=== PATIENT | female | born 1985 | race African-American/Black ===

== ENCOUNTER → 2017-01-22 | Outpatient (CLI) | payer OTHER, SELFPAY ==
--- NOTE | 2017-01-23 09:16 | US ---
Examination: Greater than 14 weeks transabdominal ultrasound with color Doppler and M-mode evaluatio n. HISTORY: Screening FINDINGS: LMP is 09/05/2016 EVALUATION: Anterior placenta with a breech lie and grade 1. Visually amniotic fluid is within normal limits. Three-vessel cord is seen. Ventricles are within normal limits. Nuchal fold thickness is not provided. Four chamber heart is noted. Heart rate is 161 beats per minute. BIOMETRY AND GESTATIONAL AGE: Biparietal diameter 4.9 cm. The abdominal circumference measures 14.3 cm. The femoral length is 3.2 cm with head circumference of 17.8 cm. Gestational age is 19 weeks and 6 days. The expected date of delivery is approximately 06/09/2017. Fetus weight is 318 grams. Overall the fetus is within the 46t h percentile. Other detail anatomy summarized into PACs sheet after the images. No anatomical anomalies. There is a 5.5 cm heterogeneous subserosal fibroid noted within the region of pain. IMPRESSION: 1. Single active IU with breech fetus. Anterior placenta with grade 1, no placenta previa. 2. No anomalies are seen. Amniotic fluid appears within normal limits. 3. There is a 5.5 cm subserosal fibroid noted along the right side of the uterus within the region o f pain.
== END ==
LOC: MW.CHOBGYN 10:14
PROVIDERS: ATTEND Obstetrics & Gynecology
DX: O26.899 Other specified pregnancy related conditions, unspecified trimester (principal); R10.9 Unspecified abdominal pain; Z36 Encounter for antenatal screening of mother
CPT/HCPCS: 36415; 76805; 76805-26; 81001; 85027; 86592; 86762; 86803; 86850; 86900; 86901; 87086; 87340; 87389

== ENCOUNTER → 2017-03-19 | Outpatient (CLI) | payer OTHER, SELFPAY | LOC: MW.CHOBGYN 08:48 | PROVIDERS: ATTEND Obstetrics & Gynecology | DX: Z34.90 Encounter for supervision of normal pregnancy, unspecified, unspecified trimester (principal) | CPT/HCPCS: 36415; 81003; 82950; 85027 ==

== ENCOUNTER 2017-06-19 05:06 | Inpatient (IN) | payer MEDICAID, OTHER ==
[2017-06-19] MEDS ORDERED: Sodium Chloride 0.9% 2.5 ML Syringe FLUSH PRN ×2 (05:15→14:40)
[2017-06-19] MEDS ORDERED: Nalbuphine 10 MG/1 ML Vial IVPUSH PRN ×2 (05:15→16:58)
[2017-06-19] MEDS ORDERED: Sodium Chloride 0.9% 10 ML Syringe FLUSH PRN ×2 (05:15→14:40)
[2017-06-19] MEDS ORDERED: Methylergonovine 0.2 MG/1 ML Amp IM PRN (05:15)
[2017-06-19] MEDS ORDERED: Carboprost Tromethamine 250 MCG/1 ML Amp IM PRN (05:15)
[2017-06-19] MEDS ORDERED: Butorphanol 1 MG/ML SDV IVPUSH PRN (05:15)
[2017-06-19] MEDS ORDERED: Misoprostol 200 MCG Tab PO PRN (05:15)
[2017-06-19] MEDS ORDERED: Water For Irrigation,Sterile 1,000 ML Container IRR PRN (05:15)
[2017-06-19] MEDS ORDERED: Lidocaine 1% 50 ML MDV INJECT PRN (05:15)
[2017-06-19] MEDS ORDERED: Oxytocin/Lactated Ringers 30 UNIT/500 ML BAG IV SCH ×2 (05:15)
[2017-06-19] MEDS ORDERED: Terbutaline 1 MG/ML SDV SUBCUT PRN (05:15)
[2017-06-19] MEDS ORDERED: Misoprostol 25 MCG (1/4 of 100 MCG) Tab VAG PRN (05:15)
[2017-06-19] MEDS ORDERED: Misoprostol 25 MCG (1/4 of 100 MCG) Tab VAG SCH (05:15)
[2017-06-19] MEDS: Lactated Ringers 1,000 ML IV SCH ×2 (05:47→10:59)
[2017-06-19] MEDS: Misoprostol 25 MCG (1/4 of 100 MCG) Tab PO SCH ×3 (06:07→22:36)
--- NOTE | 2017-06-19 08:31 | PCM.LDHP ---
L&D History of Present Illness - General Date of Service: 06/19/17 Admit Problem/Dx: Patient Status Order with Admit Dx/Problem 06/19/17 05:16 Patient Status [ADT] Routine Admission Diagnosis/Problem Admission Diagnosis/Problem Source of Information: Patient History Limitations: Reports: No Limitations - History of Present Illness Improves with: Reports: None Worsens with: Reports: None Associated Symptoms: Reports: N - Related Data Allergies/Adverse Reactions: Allergies Allergy/AdvReac Type Severity Reaction Status Date / Time No Known Allergies Allergy Verified 08/05/16 08:13 Home Medications: Home Meds . [No Known Home Meds] 09/10/14 [History] Past Medical History - Past Health History Medical/Surgical History: Denies Medical/Surgical History HEENT History: Reports: None Cardiovascular History: Reports: None Respiratory History: Reports: None Gastrointestinal History: Reports: GERD Genitourinary History: Reports: None BONE GLUE MAKER History: Reports: None Musculoskeletal History: Reports: None Neurological History: Reports: None Psychiatric History: Reports: None Endocrine/Metabolic History: Reports: None Hematologic History: Reports: None Immunologic History: Reports: None Oncologic (Cancer) History: Reports: None Dermatologic History: Reports: None - Infectious Disease History Infectious Disease History: Reports: None - Past Surgical History Head Surgeries/Procedures: Reports: None HEENT Surgical History: Reports: None Cardiovascular Surgical History: Reports: None Respiratory Surgical History: Reports: None GI Surgical History: Reports: None Female Surgical History: Reports: None Endocrine Surgical History: Reports: None Neurological Surgical History: Reports: None Musculoskeletal Surgical History: Reports: None Dermatological Surgical History: Reports: None Social & Family History - Family History Family Medical History: Noncontributory - Tobacco Use Smoking Status *Q: Never Smoker Second Hand Smoke Exposure: No - Caffeine Use Caffeine Use: Reports: None - Alcohol Use Days Per Week of Alcohol Use: 0 - Recreational Drug Use Recreational Drug Use: No H&P Review of Systems - Review of Systems: Review Of Systems: See Below General: Reports: No Symptoms HEENT: Reports: No Symptoms Pulmonary: Reports: No Symptoms Cardiovascular: Reports: No Symptoms Gastrointestinal: Reports: No Symptoms Genitourinary: Reports: No Symptoms Musculoskeletal: Reports: No Symptoms Skin: Reports: No Symptoms Psychiatric: Reports: No Symptoms Neurological: Reports: No Symptoms Hematologic/Lymphatic: Reports: No Symptoms Immunologic: Reports: No Symptoms L&D Exam - Exam Exam: See Below - Vital Signs Weight: 54.3 kg - OB Specific Fundal Height In cm: 38 Contraction Intensity: Mild Movement: Active Heart Rate (FHR) Variability: Moderate (6-25 bmp) Presentation: Vertex - Hall Score Hall Score Cervix Position: Midposition Hall Score Consistency: Medium Hall Score Effacement: 51-70% Hall Score Dilation: 1-2 cm Hall Score 's Station: -2 Hall Score Total: 6 - Exam General: Alert, Oriented HEENT: PERRLA, Conjunctiva Clear, EACs Clear, EOMI, Hearing Intact, Mucosa Moist & [place], Nares Patent, Normal Nasal Septum, Posterior Pharynx Clear, TMs Clear Neck: Supple, Trachea Midline Lungs: Clear to Auscultation, Normal Respiratory Effort Cardiovascular: Regular Rate, Regular Rhythm GI/Abdominal Exam: Normal Bowel Sounds, Soft, Non-Tender, No Organomegaly, No Distention, No Abnormal Bruit, No Mass, Pelvis Stable Rectal Exam: Normal Exam, Normal Rectal Tone Genitourinary: Normal external exam, Normal bimanual exam, Normal speculum exam Back Exam: Normal Inspection, Full Range of Motion Extremities: Normal Inspection, Normal Range of Motion, Non-Tender, No Pedal Edema, Normal Capillary Refill Skin: Warm, Dry, Intact Neurological: Cranial Nerves Intact, Reflexes Equal Bilateral Psychiatric: Alert, Normal Affect, Normal Mood - Patient Data Lab Results Last 24 hrs: Laboratory Results - last 24 hr 06/19/17 06/19/17 Range/Units 05:42 05:42 WBC 8.19 (4.0-11.0) K/uL RBC 4.89 (4.30-5.90) M/uL Hgb 11.4 L (12.0-16.0) g/dL Hct 34.7 L (36.0-46.0) % MCV 71.0 L (80.0-98.0) fL MCH 23.3 L (27.0-32.0) pg MCHC 32.9 (31.0-37.0) g/dL RDW Std Deviation 35.9 (28.0-62.0) fl RDW Coeff of Earnestine 14 (11.0-15.0) % Plt Count 168 (150-400) K/uL Nucleated RBC % 0.0 /100WBC Nucleated RBCs # 0 K/uL Blood Type B POSITIVE Antibody Screen NEGATIVE Result Diagrams: 06/19/17 05:42 Problem List Initiated/Reviewed/Updated: Yes Orders Last 24hrs: Active Orders 24 hr Category Date Time Status Patient Status [ADT] Routine ADT 06/19/17 05:16 Active Bedrest Bathroom Privileges [RC] ASDIRECTED Care 06/19/17 05:16 Active Communication Order [RC] ASDIRECTED Care 06/19/17 05:16 Active Communication Order [RC] ASDIRECTED Care 06/19/17 05:16 Active Communication Order [RC] ASDIRECTED Care 06/19/17 05:16 Active Heart Tones [RC] CONTINUOUS Care 06/19/17 05:16 Active Non Stress Test [RC] PER UNIT ROUTINE Care 06/19/17 05:16 Active May Shower [RC] ASDIRECTED Care 06/19/17 05:16 Active Notify Provider [RC] PRN Care 06/19/17 05:16 Active Notify Provider [RC] PRN Care 06/19/17 05:16 Active Notify Provider [RC] PRN Care 06/19/17 05:16 Active Notify Provider [RC] STAT Care 06/19/17 05:16 Active Oxygen Therapy [RC] ASDIRECTED Care 06/19/17 05:16 Active Up ad Trinity [RC] ASDIRECTED Care 06/19/17 05:16 Active Vaginal Exam [RC] PRN Care 06/19/17 05:16 Active Vaginal Exam [RC] PRN Care 06/19/17 05:16 Active Vital Signs [RC] PER UNIT ROUTINE Care 06/19/17 05:16 Active Vital Signs [RC] PER UNIT ROUTINE Care 06/19/17 05:16 Active Clear Liquid Diet [DIET] Diet 06/19/17 Breakfast Active Butorphanol [Stadol] Med 06/19/17 05:15 Active 1 mg IVPUSH Q1H PRN Carboprost Tromethamine [Hemabate DS] Med 06/19/17 05:15 Active 250 mcg IM ASDIRECTED PRN Lactated Ringers [Ringers, Lactated] 1,000 ml Med 06/19/17 05:15 Active IV ASDIRECTED Lidocaine 1% [Xylocaine 1%] Med 06/19/17 05:15 Active 50 ml INJECT .ONCE PRN Methylergonovine [Methergine] Med 06/19/17 05:15 Active 0.2 mg IM ASDIRECTED PRN Misoprostol [Cytotec] Med 06/19/17 05:15 Active 200 mcg PO .ONCE PRN Misoprostol [Cytotec] Med 06/19/17 05:30 Active 25 mcg PO Q4H Misoprostol [Cytotec] Med 06/19/17 05:15 Active 25 mcg VAG .ONCE Misoprostol [Cytotec] Med 06/19/17 05:15 Active 25 mcg VAG Q4H PRN Oxytocin/Lactated Ringers [Pitocin in LR 30 Units/500 Med 06/19/17 05:15 Active ML] 30 unit in 500 ml IV TITRATE Sodium Chloride 0.9% [Saline Flush] Med 06/19/17 05:15 Active 10 ml FLUSH ASDIRECTED PRN Sodium Chloride 0.9% [Saline Flush] Med 06/19/17 05:15 Active 2.5 ml FLUSH ASDIRECTED PRN Terbutaline [Brethine] Med 06/19/17 05:15 Active 0.25 mg SUBCUT ASDIRECTED PRN Water For Irrigation,Sterile [Sterile Water for Med 06/19/17 05:15 Active Irrigation] 1,000 ml IRR ASDIRECTED PRN Scalp Electrode [WOMSER] Per Unit Routine Oth 06/19/17 05:16 Ordered Medication Administration Instruction [OM.PC] Q3H Oth 06/19/17 05:30 Ordered Peripheral IV Insertion Adult [OM.PC] Routine Oth 06/19/17 05:16 Ordered Resuscitation Status Routine Resus Stat 06/19/17 05:15 Ordered Medication Orders Butorphanol Tartrate (Stadol) 1 mg IVPUSH Q1H PRN PRN Reason: Pain Carboprost Tromethamine (Hemabate Ds) 250 mcg IM ASDIRECTED PRN PRN Reason: Post Hemorrhage Lactated Ringer's (Ringers, Lactated) 1,000 mls @ 150 mls/hr IV ASDIRECTED TASH Last Admin: 06/19/17 05:47 Dose: 150 mls/hr Oxytocin/Lactated Ringer's (Pitocin In Lr 30 Units/500 Ml) 30 unit in 500 mls @ 2 mls/hr IV TITRATE TASH; 2 MUNITS/MIN PRN Reason: Protocol Lidocaine HCl (Xylocaine 1%) 50 ml INJECT .ONCE PRN PRN Reason: Laceration repair Methylergonovine Maleate (Methergine) 0.2 mg IM ASDIRECTED PRN PRN Reason: Post Hemorrhage Misoprostol (Cytotec) 25 mcg VAG .ONCE TASH Last Admin: 06/19/17 06:07 Dose: 25 mcg Misoprostol (Cytotec) 25 mcg VAG Q4H PRN PRN Reason: Cervical Ripening Stop: 06/20/17 09:16 Misoprostol (Cytotec) 200 mcg PO .ONCE PRN PRN Reason: Post Hemorrhage Misoprostol (Cytotec) 25 mcg PO Q4H TASH Last Admin: 06/19/17 06:07 Dose: 25 mcg Sodium Chloride (Saline Flush) 10 ml FLUSH ASDIRECTED PRN PRN Reason: Keep Vein Open Sodium Chloride (Saline Flush) 2.5 ml FLUSH ASDIRECTED PRN PRN Reason: Keep Vein Open Sterile Water (Sterile Water For Irrigation) 1,000 ml IRR ASDIRECTED PRN PRN Reason: delivery Terbutaline Sulfate (Brethine) 0.25 mg SUBCUT ASDIRECTED PRN PRN Reason: Tacysystole Assessment/Plan Comment:: Post date 41+1 admitted for elective induction with Cytotic and Pitocin
[2017-06-19] MEDS ORDERED: ceFAZolin 2 GM in Premix Bag 1 BAG IV ONE (14:40)
[2017-06-19] MEDS ORDERED: Citric Acid/Sodium Citrate Solution 30 ML Cup PO SCH (14:45)
[2017-06-19] MEDS ORDERED: Lactated Ringers 1,000 ML IV SCH ×2 (14:45→16:45)
[2017-06-19] MEDS ORDERED: Morphine PF 10 MG/10 ML SDV ONE (14:51)
[2017-06-19] MEDS ORDERED: Oxytocin/Lactated Ringers 30 UNIT/500 ML BAG ONE (14:53)
[2017-06-19] MEDS ORDERED: Octyl 2-Cyanoacrylate 1 Tube ONE (15:01)
[2017-06-19] MEDS ORDERED: ePHEDrine 50 MG/ML SDV ONE (15:57)
--- NOTE | 2017-06-19 16:04 | PCM.PREANE ---
Preanesthetic Assessment - Anesthesia/Transfusion/Family Hx Anesthesia History: No Prior Anesthesia Family History of Anesthesia Reaction: No Intubation History: Unknown - Review of Systems General: No Symptoms Pulmonary: No Symptoms Cardiovascular: No Symptoms Gastrointestinal: No Symptoms Neurological: No Symptoms Other: Reports: None - Physical Assessment Height: 1.55 m Weight: 54.3 kg ASA Class: 2E Mental Status: Alert & Oriented x3 Airway Class: Mallampati = 1 Dentition: Reports: Normal Dentition Thyro-Mental Finger Breadths: 3 Mouth Opening Finger Breadths: 3 ROM/Head Extension: Full Lungs: Clear to Auscultation, Normal Respiratory Effort Cardiovascular: Regular Rate, Regular Rhythm - Lab Values: Laboratory Last Values WBC 8.19 K/uL (4.0-11.0) 06/19/17 05:42 RBC 4.89 M/uL (4.30-5.90) 06/19/17 05:42 Hgb 11.4 g/dL (12.0-16.0) L 06/19/17 05:42 Hct 34.7 % (36.0-46.0) L 06/19/17 05:42 MCV 71.0 fL (80.0-98.0) L 06/19/17 05:42 MCH 23.3 pg (27.0-32.0) L 06/19/17 05:42 MCHC 32.9 g/dL (31.0-37.0) 06/19/17 05:42 RDW Std Deviation 35.9 fl (28.0-62.0) 06/19/17 05:42 RDW Coeff of Earnestine 14 % (11.0-15.0) 06/19/17 05:42 Plt Count 168 K/uL (150-400) 06/19/17 05:42 Nucleated RBC % 0.0 /100WBC 06/19/17 05:42 Nucleated RBCs # 0 K/uL 06/19/17 05:42 Blood Type B POSITIVE 06/19/17 05:42 Antibody Screen NEGATIVE 06/19/17 05:42 - Allergies Allergies/Adverse Reactions: Allergies Allergy/AdvReac Type Severity Reaction Status Date / Time No Known Allergies Allergy Verified 08/05/16 08:13 - Blood Blood Available: No - Anesthesia Plan Pre-Op Medication Ordered: None - Acknowledgements Anesthesia Type Planned: Spinal Pt an Appropriate Candidate for the Planned Anesthesia: Yes Alternatives and Risks of Anesthesia Discussed w Pt/Guardian: Yes Pt/Guardian Understands and Agrees with Anesthesia Plan: Yes PreAnesthesia Questionnaire - Past Health History Medical/Surgical History: Denies Medical/Surgical History HEENT History: Reports: None Cardiovascular History: Reports: None Respiratory History: Reports: None Gastrointestinal History: Reports: GERD Genitourinary History: Reports: None NUT SIFTER History: Reports: (41 weeks, not responding to induction, baby high, not engaged) Musculoskeletal History: Reports: None Neurological History: Reports: None Psychiatric History: Reports: None Endocrine/Metabolic History: Reports: None Hematologic History: Reports: None Immunologic History: Reports: None Oncologic (Cancer) History: Reports: None Dermatologic History: Reports: None - Infectious Disease History Infectious Disease History: Reports: None - Past Surgical History Head Surgeries/Procedures: Reports: None HEENT Surgical History: Reports: None Cardiovascular Surgical History: Reports: None Respiratory Surgical History: Reports: None GI Surgical History: Reports: None Female Surgical History: Reports: None Endocrine Surgical History: Reports: None Neurological Surgical History: Reports: None Musculoskeletal Surgical History: Reports: None Dermatological Surgical History: Reports: None - SUBSTANCE USE Smoking Status *Q: Never Smoker Second Hand Smoke Exposure: No Days Per Week of Alcohol Use: 0 Recreational Drug Use History: No - HOME MEDS Home Medications: Home Meds . [No Known Home Meds] 09/10/14 [History] - CURRENT (IN HOUSE) MEDS Current Meds: Current Medications Butorphanol Tartrate (Stadol) 1 mg IVPUSH Q1H PRN PRN Reason: Pain Carboprost Tromethamine (Hemabate Ds) 250 mcg IM ASDIRECTED PRN PRN Reason: Post Hemorrhage Citric Acid/Sodium Citrate (Bicitra Solution) 30 ml PO .ONCE TASH Last Admin: 06/19/17 15:14 Dose: 30 ml Lactated Ringer's (Ringers, Lactated) 1,000 mls @ 150 mls/hr IV ASDIRECTED TASH Last Admin: 06/19/17 10:59 Dose: 150 mls/hr Oxytocin/Lactated Ringer's (Pitocin In Lr 30 Units/500 Ml) 30 unit in 500 mls @ 2 mls/hr IV TITRATE TASH; 2 MUNITS/MIN PRN Reason: Protocol Last Titration: 06/19/17 14:39 Dose: 0 munits/min, 0 mls/hr Lactated Ringer's (Ringers, Lactated) 1,000 mls @ 500 mls/hr IV .BOLUS TASH Last Admin: 06/19/17 15:14 Dose: 500 mls/hr Lidocaine HCl (Xylocaine 1%) 50 ml INJECT .ONCE PRN PRN Reason: Laceration repair Methylergonovine Maleate (Methergine) 0.2 mg IM ASDIRECTED PRN PRN Reason: Post Hemorrhage Misoprostol (Cytotec) 25 mcg VAG .ONCE TASH Last Admin: 06/19/17 06:07 Dose: 25 mcg Misoprostol (Cytotec) 25 mcg VAG Q4H PRN PRN Reason: Cervical Ripening Stop: 06/20/17 09:16 Misoprostol (Cytotec) 200 mcg PO .ONCE PRN PRN Reason: Post Hemorrhage Misoprostol (Cytotec) 25 mcg PO Q4H TASH Last Admin: 06/19/17 06:07 Dose: 25 mcg Sodium Chloride (Saline Flush) 10 ml FLUSH ASDIRECTED PRN PRN Reason: Keep Vein Open Sodium Chloride (Saline Flush) 2.5 ml FLUSH ASDIRECTED PRN PRN Reason: Keep Vein Open Sodium Chloride (Saline Flush) 10 ml FLUSH ASDIRECTED PRN PRN Reason: Keep Vein Open Sodium Chloride (Saline Flush) 2.5 ml FLUSH ASDIRECTED PRN PRN Reason: Keep Vein Open Sterile Water (Sterile Water For Irrigation) 1,000 ml IRR ASDIRECTED PRN PRN Reason: delivery Terbutaline Sulfate (Brethine) 0.25 mg SUBCUT ASDIRECTED PRN PRN Reason: Tacysystole Discontinued Medications Oxytocin/Lactated Ringer's (Pitocin In Lr 30 Units/500 Ml) 30 unit in 500 mls @ 999 mls/hr IV TITRATE TASH; 999 MUNITS/MIN PRN Reason: Protocol Stop: 06/19/17 05:46 Cefazolin Sodium/Dextrose 2 gm (/ Premix) 50 mls @ 100 mls/hr IV ONETIME ONE Stop: 06/19/17 15:09 Oxytocin/Lactated Ringer's (Pitocin In Lr 30 Units/500 Ml) Confirm Administered Dose 30 unit in 500 mls @ as directed .ROUTE .STK-MED ONE Stop: 06/19/17 14:54 Cefazolin Sodium/Dextrose (Ancef) Confirm Administered Dose 50 mls @ as directed .ROUTE .STK-MED ONE Stop: 06/19/17 14:55 Morphine Sulfate (Duramorph Pf) Confirm Administered Dose 10 mg .ROUTE .STK-MED ONE Stop: 06/19/17 14:52 Nalbuphine HCl (Nubain) 10 mg IVPUSH Q1H PRN PRN Reason: Pain (severe 7-10) Stop: 06/19/17 07:16 Octyl Cyanoacrylate (Dermabond Advance) Confirm Administered Dose 1 applic .ROUTE .STK-MED ONE Stop: 06/19/17 15:02
[2017-06-19] MEDS ORDERED: Bisacodyl 10 MG Supp RECTAL PRN (16:41)
[2017-06-19] MEDS ORDERED: diphenhydrAMINE 50 MG/ML SDV IVPUSH PRN ×2 (16:41→16:58)
[2017-06-19] MEDS ORDERED: Lanolin 100% Cream 7 GM Tube TOP PRN (16:41)
[2017-06-19] MEDS ORDERED: Ondansetron 4 MG/2 ML SDV IV PRN (16:41)
--- NOTE | 2017-06-19 16:44 | PCM.OPNOTE ---
- General Post-Op/Procedure Note Date of Surgery/Procedure: 06/19/17 Operative Procedure(s): Postdate Possible CPD primary C/Section Pre Op Diagnosis: Postdate Possible CPD primary C/Section Post-Op Diagnosis: Same Anesthesia Technique: Spinal Primary Surgeon: Martínez Narayan EBL in mLs: 550 Complications: None Condition: Good
[2017-06-19] MEDS ORDERED: Naloxone 0.4 MG/ML Syringe IVPUSH PRN (16:58)
[2017-06-19] MEDS ORDERED: fentaNYL 100 MCG/2 ML SDV IVPUSH PRN (17:00)
[2017-06-19] MEDS ORDERED: Acetaminophen/oxyCODONE 325-5 MG Tab PO PRN (17:00)
[2017-06-19] MEDS: Ketorolac 30 MG/ML SDV IVPUSH SCH ×2 (17:04→23:05)
[2017-06-19] MEDS ORDERED: Ondansetron 4 MG/2 ML SDV ONE (17:13)
[2017-06-19] MEDS: Docusate Sodium 100 MG Cap PO SCH (23:05)
--- NOTE | 2017-06-19 23:23 | OR ---
SURGEON: Martínez Narayan MD DATE OF PROCEDURE: PREOPERATIVE DIAGNOSES: Postdate , 41 plus 2, possible CBD. OPERATION PERFORMED: Primary low transverse section. TWISTING FRAME FIXER: Dr. Kelley ANESTHESIA: Spinal by Jazmyne Restrepo and Dr. Knott. ESTIMATED BLOOD LOSS: 550 mL. COMPLICATION: None. FINDING: Male fetus. score reported to be 8 and 9. The weight is not available. INDICATION FOR SURGERY: This patient is 41 plus 2. She is followed in our office. She is admitted for elective induction. The patient had a very narrow pelvis. She has a very closed pubic arch and very flat coccygeal bone and the patient is 43 in spite of the fact that she is primigravida, the baby's head was not engaged and it was entirely above the symphysis pubis. An attempt to do induction was done, but it was unsuccessful and diagnoses of CPD is done and primary low transverse section is performed. PROCEDURE IN DETAIL: The patient was brought to the OR, properly identified. After adequate level of spinal anesthesia with a Urias catheter in the bladder, the patient prepped and draped in sterile fashion as usual. Low transverse Pfannenstiel skin incision was done. The Anjel's fascia and rectus fascia was opened in direction of the incision. The 2 recti muscles were and peritoneal cavity was entered. Bladder flap was raised in the usual manner, pushing the bladder away from the lower uterine segment. Low transverse uterine incision was done and meconium was noticed and amniotic fluid. The fetus was delivered in the vertex position, delivered and cried immediately, handed to the nurse resuscitator, who was present at the time of the delivery and later on the score reported to be 8 and 9 and the weight is not available. The placenta delivered spontaneous, complete, and intact, and then repair of the lower uterine segment was done with 2-0 Vicryl continuous interlocking in 2 layers. Reperitonealization was done with 3-0 Vicryl continuous and then the peritoneal cavity evacuated completely from all blood and blood clot, and closed with 3-0 Vicryl continuous and the rectus fascia was closed with #1 PDS continuous and the Anjel's fascia with 3-0 Vicryl continuous. The skin was closed skin clips Insorb and Dermabond. Instrument and sponge count was correct. The patient tolerated the procedure well and went to recovery room in stable general condition. TAYLOR FIGUEROA /[id number]
[2017-06-20] MEDS: Misoprostol 25 MCG (1/4 of 100 MCG) Tab PO SCH (04:09)
[2017-06-20] MEDS: Ketorolac 30 MG/ML SDV IVPUSH SCH ×3 (05:15→17:22)
--- NOTE | 2017-06-20 08:56 | PCM.PNPP ---
- General Info Date of Service: 06/20/17 Functional Status: Reports: Pain Controlled - Review of Systems General: Reports: No Symptoms HEENT: Reports: No Symptoms Pulmonary: Reports: No Symptoms Cardiovascular: Reports: No Symptoms Gastrointestinal: Reports: No Symptoms Genitourinary: Reports: No Symptoms Musculoskeletal: Reports: No Symptoms Skin: Reports: No Symptoms Neurological: Reports: No Symptoms Psychiatric: Reports: No Symptoms - General Info Date of Service: 06/20/17 - Patient Data Vital Signs - Most Recent: Last Vital Signs Temp 36.8 C 06/20/17 04:00 Pulse 78 06/20/17 04:00 Resp 16 06/20/17 07:00 BP 109/61 06/20/17 04:00 Pulse Ox 93 L 06/20/17 07:00 Weight - Most Recent: 54.3 kg I&O - Last 24 Hours: Intake & Output 06/19/17 06/20/17 06/20/17 22:59 06:59 14:59 Intake Total 1800 Output Total 600 Balance 1200 Lab Results - Last 24 Hours: Laboratory Results - last 24 hr 06/20/17 Range/Units 04:44 Hgb 9.0 L (12.0-16.0) g/dL Hct 27.8 L (36.0-46.0) % Med Orders - Current: Current Medications Bisacodyl (Dulcolax) 10 mg RECTAL .ONCE PRN PRN Reason: Constipation Citric Acid/Sodium Citrate (Bicitra Solution) 30 ml PO .ONCE TASH Last Admin: 06/19/17 15:14 Dose: 30 ml Diphenhydramine HCl (Benadryl) 25 mg IVPUSH Q6H PRN PRN Reason: Itching or Nausea Last Admin: 06/19/17 18:22 Dose: 25 mg Diphenhydramine HCl (Benadryl) 12.5 - 25 mg IVPUSH Q4H PRN PRN Reason: Itching Stop: 06/20/17 16:59 Docusate Sodium (Colace) 100 mg PO BID TASH Last Admin: 06/19/17 23:05 Dose: 100 mg Emollient Ointment (Lansinoh Hpa) 0 gm TOP ASDIRECTED PRN PRN Reason: Sore Nipples Fentanyl (Sublimaze) 25 - 50 mcg IVPUSH Q30M PRN PRN Reason: Pain Lactated Ringer's (Ringers, Lactated) 1,000 mls @ 500 mls/hr IV .BOLUS [facility] Last Admin: 06/19/17 15:14 Dose: 500 mls/hr Lactated Ringer's (Ringers, Lactated) 1,000 mls @ 125 mls/hr IV ASDIRECTED [facility] Last Admin: 06/20/17 03:30 Dose: 125 mls/hr Ibuprofen (Motrin) 800 mg PO Q8H PRN PRN Reason: mild pain or fever Ketorolac Tromethamine (Toradol) 30 mg IVPUSH Q6H [facility] Stop: 06/20/17 16:46 Last Admin: 06/20/17 05:15 Dose: 30 mg Nalbuphine HCl (Nubain) 5 mg IVPUSH Q3H PRN PRN Reason: Pruritis Stop: 06/20/17 16:59 Naloxone HCl (Narcan) 0.1 mg IVPUSH ONETIME PRN PRN Reason: Other Stop: 06/20/17 17:00 Ondansetron HCl (Zofran) 4 mg IV Q4H PRN PRN Reason: Nausea/Vomiting Oxycodone/Acetaminophen (Percocet 325-5 Mg) 1 tab PO Q4H PRN PRN Reason: Pain (moderate 4-6) Oxycodone/Acetaminophen (Percocet 325-5 Mg) 2 tab PO Q4H PRN PRN Reason: Pain (moderate 4-6) Oxycodone/Acetaminophen (Percocet 325-5 Mg) 1 - 2 tab PO Q6H PRN PRN Reason: Pain Stop: 06/21/17 14:00 Sodium Chloride (Saline Flush) 10 ml FLUSH ASDIRECTED PRN PRN Reason: Keep Vein Open Sodium Chloride (Saline Flush) 10 ml FLUSH ASDIRECTED PRN PRN Reason: Keep Vein Open Sodium Chloride (Saline Flush) 2.5 ml FLUSH ASDIRECTED PRN PRN Reason: Keep Vein Open Discontinued Medications Butorphanol Tartrate (Stadol) 1 mg IVPUSH Q1H PRN PRN Reason: Pain Carboprost Tromethamine (Hemabate Ds) 250 mcg IM ASDIRECTED PRN PRN Reason: Post Hemorrhage Ephedrine Sulfate (Ephedrine Sulfate) Confirm Administered Dose 50 mg .ROUTE .STK-MED ONE Stop: 06/19/17 15:58 Lactated Ringer's (Ringers, Lactated) 1,000 mls @ 150 mls/hr IV ASDIRECTED TASH Last Admin: 06/19/17 10:59 Dose: 150 mls/hr Oxytocin/Lactated Ringer's (Pitocin In Lr 30 Units/500 Ml) 30 unit in 500 mls @ 2 mls/hr IV TITRATE TASH; 2 MUNITS/MIN PRN Reason: Protocol Last Titration: 06/19/17 14:39 Dose: 0 munits/min, 0 mls/hr Oxytocin/Lactated Ringer's (Pitocin In Lr 30 Units/500 Ml) 30 unit in 500 mls @ 999 mls/hr IV TITRATE TASH; 999 MUNITS/MIN PRN Reason: Protocol Stop: 06/19/17 05:46 Last Admin: 06/19/17 22:18 Dose: Not Given Cefazolin Sodium/Dextrose 2 gm (/ Premix) 50 mls @ 100 mls/hr IV ONETIME ONE Stop: 06/19/17 15:09 Last Admin: 06/19/17 22:19 Dose: Not Given Oxytocin/Lactated Ringer's (Pitocin In Lr 30 Units/500 Ml) Confirm Administered Dose 30 unit in 500 mls @ as directed .ROUTE .[facility]-MED ONE Stop: 06/19/17 14:54 Cefazolin Sodium/Dextrose (Ancef) Confirm Administered Dose 50 mls @ as directed .ROUTE .[facility]-MED ONE Stop: 06/19/17 14:55 Lidocaine HCl (Xylocaine 1%) 50 ml INJECT .ONCE PRN PRN Reason: Laceration repair Methylergonovine Maleate (Methergine) 0.2 mg IM ASDIRECTED PRN PRN Reason: Post Hemorrhage Misoprostol (Cytotec) 25 mcg VAG .ONCE TASH Last Admin: 06/19/17 06:07 Dose: 25 mcg Misoprostol (Cytotec) 25 mcg VAG Q4H PRN PRN Reason: Cervical Ripening Stop: 06/20/17 09:16 Misoprostol (Cytotec) 200 mcg PO .ONCE PRN PRN Reason: Post Hemorrhage Misoprostol (Cytotec) 25 mcg PO Q4H TASH Last Admin: 06/20/17 04:09 Dose: Not Given Morphine Sulfate (Duramorph Pf) Confirm Administered Dose 10 mg .ROUTE .STK-MED ONE Stop: 06/19/17 14:52 Nalbuphine HCl (Nubain) 10 mg IVPUSH Q1H PRN PRN Reason: Pain (severe 7-10) Stop: 06/19/17 07:16 Octyl Cyanoacrylate (Dermabond Advance) Confirm Administered Dose 1 applic .ROUTE .STK-MED ONE Stop: 06/19/17 15:02 Ondansetron HCl (Zofran) Confirm Administered Dose 4 mg .ROUTE .STK-MED ONE Stop: 06/19/17 17:14 Sodium Chloride (Saline Flush) 2.5 ml FLUSH ASDIRECTED PRN PRN Reason: Keep Vein Open Sterile Water (Sterile Water For Irrigation) 1,000 ml IRR ASDIRECTED PRN PRN Reason: delivery Terbutaline Sulfate (Brethine) 0.25 mg SUBCUT ASDIRECTED PRN PRN Reason: Tacysystole - Interaction Disposition, : in Room with Family Infant Interaction: Holding Feeding: Attempted ; Nursed Fair/Poor Support Person: - Recovery Exam Fundal Tone: Firm Fundal Level: At Umbilicus Fundal Placement: Midline Lochia Amount: Scant Lochia Color: Rubra/Red Perineum Description: Intact, Minimal Bruising/Swelling Episiotomy/Laceration: None Bladder Status: Indwelling Catheter in Place Urinary Elimination: Indwelling Catheter - Exam General: Alert, Oriented HEENT: Pupils Equal Neck: Supple Lungs: Clear to Auscultation, Normal Respiratory Effort Cardiovascular: Regular Rate, Regular Rhythm GI/Abdominal Exam: Normal Bowel Sounds, Soft, Non-Tender, No Organomegaly, No Distention, No Abnormal Bruit, No Mass, Pelvis Stable Extremities: Normal Inspection, Normal Range of Motion, Non-Tender, No Pedal Edema, Normal Capillary Refill Skin: Warm, Dry, Intact Wound/Incisions: Healing Well Neurological: No New Focal Deficit Psy/Mental Status: Alert, Normal Affect, Normal Mood - Problem List Review Problem List Initiated/Reviewed/Updated: Yes - My Orders Last 24 Hours: My Active Orders 06/19/17 14:40 Up ad Trinity [RC] ASDIRECTED Sodium Chloride 0.9% [Saline Flush] 10 ml FLUSH ASDIRECTED PRN Sodium Chloride 0.9% [Saline Flush] 2.5 ml FLUSH ASDIRECTED PRN Peripheral IV Insertion Adult [OM.PC] Routine Schedule Procedure [COMM] Per Unit Routine Resuscitation Status Routine 06/19/17 14:42 Notify Provider Vital Signs [RC] PRN 06/19/17 14:45 Citric Acid/Sodium Citrate [Bicitra Solution] 30 ml PO .ONCE Lactated Ringers [Ringers, Lactated] 1,000 ml IV .BOLUS 06/19/17 16:41 Patient Status [ADT] Routine Ambulate [RC] PER UNIT ROUTINE Antiembolic Devices [RC] PER UNIT ROUTINE Communication Order [RC] PER UNIT ROUTINE Communication Order [RC] PER UNIT ROUTINE Communication Order [RC] Per Unit Routine May Shower [RC] ASDIRECTED RT Incentive Spirometry [RC] Q2HWA Acetaminophen/oxyCODONE [Percocet 325-5 MG] 1 tab PO Q4H PRN Acetaminophen/oxyCODONE [Percocet 325-5 MG] 2 tab PO Q4H PRN Bisacodyl [Dulcolax] 10 mg RECTAL .ONCE PRN Ibuprofen [Motrin] 800 mg PO Q8H PRN Lanolin [Lansinoh HPA] See Dose Instructions TOP ASDIRECTED PRN Ondansetron [Zofran] 4 mg IV Q4H PRN diphenhydrAMINE [Benadryl] 25 mg IVPUSH Q6H PRN Assess Lochia [WOMSER] Per Unit Routine Assess Uterine Involution [WOMSER] Per Unit Routine Breast Pump [WOMSER] Per Unit Routine Peripheral IV Discontinue [OM.PC] Routine Sequential Compression Device [OM.PC] Per Unit Routine 06/19/17 16:45 Ketorolac [Toradol] 30 mg IVPUSH Q6H Lactated Ringers [Ringers, Lactated] 1,000 ml IV ASDIRECTED 06/19/17 21:00 Docusate Sodium [Colace] 100 mg PO BID - Assessment Assessment:: Status post primary low transverse section postoperative day #1 she is doing well - Plan Plan:: Post date 41+1 admitted for elective induction with Cytotic and Pitocin
[2017-06-20] MEDS: Docusate Sodium 100 MG Cap PO SCH (09:33)
[2017-06-20] MEDS: Acetaminophen/oxyCODONE 325-5 MG Tab PO PRN ×3 (09:45→23:38)
[2017-06-20] MEDS: Ibuprofen 800 MG Tab PO PRN (23:37)
[2017-06-21] MEDS: Acetaminophen/oxyCODONE 325-5 MG Tab PO PRN ×4 (04:24→17:34)
[2017-06-21] MEDS: Docusate Sodium 100 MG Cap PO SCH (08:35)
--- NOTE | 2017-06-21 09:11 | PCM.SURGPN ---
- General Info Date of Service: 06/21/17 Functional Status: Reports: Pain Controlled - Review of Systems General: Reports: No Symptoms HEENT: Reports: No Symptoms Pulmonary: Reports: No Symptoms Cardiovascular: Reports: No Symptoms Gastrointestinal: Reports: No Symptoms Genitourinary: Reports: No Symptoms Musculoskeletal: Reports: No Symptoms Skin: Reports: No Symptoms Neurological: Reports: No Symptoms Psychiatric: Reports: No Symptoms - Patient Data Vitals - Most Recent: Last Vital Signs Temp 36.8 C 06/21/17 08:00 Pulse 91 06/21/17 08:00 Resp 15 06/21/17 08:00 BP 103/66 06/21/17 08:00 Pulse Ox 98 06/21/17 08:00 Weight - Most Recent: 54.3 kg I&O - Last 24 Hours: Intake & Output 06/20/17 06/21/17 06/21/17 22:59 06:59 14:59 Output Total 550 Balance -550 Med Orders - Current: Current Medications Bisacodyl (Dulcolax) 10 mg RECTAL .ONCE PRN PRN Reason: Constipation Citric Acid/Sodium Citrate (Bicitra Solution) 30 ml PO .ONCE [facility] Last Admin: 06/19/17 15:14 Dose: 30 ml Diphenhydramine HCl (Benadryl) 25 mg IVPUSH Q6H PRN PRN Reason: Itching or Nausea Last Admin: 06/19/17 18:22 Dose: 25 mg Docusate Sodium (Colace) 100 mg PO BID [facility] Last Admin: 06/21/17 08:35 Dose: 100 mg Emollient Ointment (Lansinoh Hpa) 0 gm TOP ASDIRECTED PRN PRN Reason: Sore Nipples Fentanyl (Sublimaze) 25 - 50 mcg IVPUSH Q30M PRN PRN Reason: Pain Lactated Ringer's (Ringers, Lactated) 1,000 mls @ 500 mls/hr IV .BOLUS [facility] Last Admin: 06/19/17 15:14 Dose: 500 mls/hr Lactated Ringer's (Ringers, Lactated) 1,000 mls @ 125 mls/hr IV ASDIRECTED [facility] Last Admin: 06/20/17 03:30 Dose: 125 mls/hr Ibuprofen (Motrin) 800 mg PO Q8H PRN PRN Reason: mild pain or fever Last Admin: 06/20/17 23:37 Dose: 800 mg Ondansetron HCl (Zofran) 4 mg IV Q4H PRN PRN Reason: Nausea/Vomiting Oxycodone/Acetaminophen (Percocet 325-5 Mg) 1 tab PO Q4H PRN PRN Reason: Pain (moderate 4-6) Last Admin: 06/20/17 17:25 Dose: 1 tab Oxycodone/Acetaminophen (Percocet 325-5 Mg) 2 tab PO Q4H PRN PRN Reason: Pain (moderate 4-6) Last Admin: 06/21/17 08:35 Dose: 2 tab Oxycodone/Acetaminophen (Percocet 325-5 Mg) 1 - 2 tab PO Q6H PRN PRN Reason: Pain Stop: 06/21/17 14:00 Last Admin: 06/20/17 13:23 Dose: 1 tab Sodium Chloride (Saline Flush) 10 ml FLUSH ASDIRECTED PRN PRN Reason: Keep Vein Open Sodium Chloride (Saline Flush) 10 ml FLUSH ASDIRECTED PRN PRN Reason: Keep Vein Open Sodium Chloride (Saline Flush) 2.5 ml FLUSH ASDIRECTED PRN PRN Reason: Keep Vein Open Discontinued Medications Butorphanol Tartrate (Stadol) 1 mg IVPUSH Q1H PRN PRN Reason: Pain Carboprost Tromethamine (Hemabate Ds) 250 mcg IM ASDIRECTED PRN PRN Reason: Post Hemorrhage Diphenhydramine HCl (Benadryl) 12.5 - 25 mg IVPUSH Q4H PRN PRN Reason: Itching Stop: 06/20/17 16:59 Ephedrine Sulfate (Ephedrine Sulfate) Confirm Administered Dose 50 mg .ROUTE .STK-MED ONE Stop: 06/19/17 15:58 Lactated Ringer's (Ringers, Lactated) 1,000 mls @ 150 mls/hr IV ASDIRECTED TASH Last Admin: 06/19/17 10:59 Dose: 150 mls/hr Oxytocin/Lactated Ringer's (Pitocin In Lr 30 Units/500 Ml) 30 unit in 500 mls @ 2 mls/hr IV TITRATE TASH; 2 MUNITS/MIN PRN Reason: Protocol Last Titration: 06/19/17 14:39 Dose: 0 munits/min, 0 mls/hr Oxytocin/Lactated Ringer's (Pitocin In Lr 30 Units/500 Ml) 30 unit in 500 mls @ 999 mls/hr IV TITRATE TASH; 999 MUNITS/MIN PRN Reason: Protocol Stop: 06/19/17 05:46 Last Admin: 06/19/17 22:18 Dose: Not Given Cefazolin Sodium/Dextrose 2 gm (/ Premix) 50 mls @ 100 mls/hr IV ONETIME ONE Stop: 06/19/17 15:09 Last Admin: 06/19/17 22:19 Dose: Not Given Oxytocin/Lactated Ringer's (Pitocin In Lr 30 Units/500 Ml) Confirm Administered Dose 30 unit in 500 mls @ as directed .ROUTE .STK-MED ONE Stop: 06/19/17 14:54 Cefazolin Sodium/Dextrose (Ancef) Confirm Administered Dose 50 mls @ as directed .ROUTE .STK-MED ONE Stop: 06/19/17 14:55 Ketorolac Tromethamine (Toradol) 30 mg IVPUSH Q6H [facility] Stop: 06/20/17 16:46 Last Admin: 06/20/17 17:22 Dose: 30 mg Lidocaine HCl (Xylocaine 1%) 50 ml INJECT .ONCE PRN PRN Reason: Laceration repair Methylergonovine Maleate (Methergine) 0.2 mg IM ASDIRECTED PRN PRN Reason: Post Hemorrhage Misoprostol (Cytotec) 25 mcg VAG .ONCE TASH Last Admin: 06/19/17 06:07 Dose: 25 mcg Misoprostol (Cytotec) 25 mcg VAG Q4H PRN PRN Reason: Cervical Ripening Stop: 06/20/17 09:16 Misoprostol (Cytotec) 200 mcg PO .ONCE PRN PRN Reason: Post Hemorrhage Misoprostol (Cytotec) 25 mcg PO Q4H TASH Last Admin: 06/20/17 04:09 Dose: Not Given Morphine Sulfate (Duramorph Pf) Confirm Administered Dose 10 mg .ROUTE .STK-MED ONE Stop: 06/19/17 14:52 Nalbuphine HCl (Nubain) 10 mg IVPUSH Q1H PRN PRN Reason: Pain (severe 7-10) Stop: 06/19/17 07:16 Nalbuphine HCl (Nubain) 5 mg IVPUSH Q3H PRN PRN Reason: Pruritis Stop: 06/20/17 16:59 Naloxone HCl (Narcan) 0.1 mg IVPUSH ONETIME PRN PRN Reason: Other Stop: 06/20/17 17:00 Octyl Cyanoacrylate (Dermabond Advance) Confirm Administered Dose 1 applic .ROUTE .STK-MED ONE Stop: 06/19/17 15:02 Ondansetron HCl (Zofran) Confirm Administered Dose 4 mg .ROUTE .STK-MED ONE Stop: 06/19/17 17:14 Sodium Chloride (Saline Flush) 2.5 ml FLUSH ASDIRECTED PRN PRN Reason: Keep Vein Open Sterile Water (Sterile Water For Irrigation) 1,000 ml IRR ASDIRECTED PRN PRN Reason: delivery Terbutaline Sulfate (Brethine) 0.25 mg SUBCUT ASDIRECTED PRN PRN Reason: Tacysystole - Exam Wound/Incisions: Healing Well General: Alert, Oriented HEENT: Pupils Equal Neck: Supple Lungs: Clear to Auscultation, Normal Respiratory Effort Cardiovascular: Regular Rate, Regular Rhythm GI/Abdominal Exam: Normal Bowel Sounds, Soft, Non-Tender, No Organomegaly, No Distention, No Abnormal Bruit, No Mass, Pelvis Stable Extremities: Normal Inspection, Normal Range of Motion, Non-Tender, No Pedal Edema, Normal Capillary Refill Skin: Warm, Dry, Intact Neurological: No New Focal Deficit Psy/Mental Status: Alert, Normal Affect, Normal Mood - Problem List Review Problem List Initiated/Reviewed/Updated: Yes - My Orders Last 24 Hours: Active Orders 24 hr Category Date Time Status Regular Diet [DIET] Diet 06/21/17 Breakfast Active AN Neuroaxis Duramorph Precaution Reflex [OM.PC] PER Oth 06/20/17 17:00 Ordered UNIT ROUTINE Medication Orders Bisacodyl (Dulcolax) 10 mg RECTAL .ONCE PRN PRN Reason: Constipation Citric Acid/Sodium Citrate (Bicitra Solution) 30 ml PO .ONCE TASH Last Admin: 06/19/17 15:14 Dose: 30 ml Diphenhydramine HCl (Benadryl) 25 mg IVPUSH Q6H PRN PRN Reason: Itching or Nausea Last Admin: 06/19/17 18:22 Dose: 25 mg Docusate Sodium (Colace) 100 mg PO BID [facility] Last Admin: 06/21/17 08:35 Dose: 100 mg Admin: 06/20/17 09:33 Dose: 100 mg Admin: 06/19/17 23:05 Dose: 100 mg Emollient Ointment (Lansinoh Hpa) 0 gm TOP ASDIRECTED PRN PRN Reason: Sore Nipples Fentanyl (Sublimaze) 25 - 50 mcg IVPUSH Q30M PRN PRN Reason: Pain Lactated Ringer's (Ringers, Lactated) 1,000 mls @ 500 mls/hr IV .BOLUS [facility] Last Admin: 06/19/17 15:14 Dose: 500 mls/hr Lactated Ringer's (Ringers, Lactated) 1,000 mls @ 125 mls/hr IV ASDIRECTED [facility] Last Admin: 06/20/17 03:30 Dose: 125 mls/hr Ibuprofen (Motrin) 800 mg PO Q8H PRN PRN Reason: mild pain or fever Last Admin: 06/20/17 23:37 Dose: 800 mg Ondansetron HCl (Zofran) 4 mg IV Q4H PRN PRN Reason: Nausea/Vomiting Oxycodone/Acetaminophen (Percocet 325-5 Mg) 1 tab PO Q4H PRN PRN Reason: Pain (moderate 4-6) Last Admin: 06/20/17 17:25 Dose: 1 tab Admin: 06/20/17 09:45 Dose: 1 tab Oxycodone/Acetaminophen (Percocet 325-5 Mg) 2 tab PO Q4H PRN PRN Reason: Pain (moderate 4-6) Last Admin: 06/21/17 08:35 Dose: 2 tab Admin: 06/21/17 04:24 Dose: 2 tab Admin: 06/20/17 23:38 Dose: 2 tab Oxycodone/Acetaminophen (Percocet 325-5 Mg) 1 - 2 tab PO Q6H PRN PRN Reason: Pain Stop: 06/21/17 14:00 Last Admin: 06/20/17 13:23 Dose: 1 tab Sodium Chloride (Saline Flush) 10 ml FLUSH ASDIRECTED PRN PRN Reason: Keep Vein Open Sodium Chloride (Saline Flush) 10 ml FLUSH ASDIRECTED PRN PRN Reason: Keep Vein Open Sodium Chloride (Saline Flush) 2.5 ml FLUSH ASDIRECTED PRN PRN Reason: Keep Vein Open - Assessment Assessment (Free Text/Narrative):: S/P c/section doing well - Plan Plan (Free Text/Narrative):: Send home today
[2017-06-21 16:15] VITALS: BP 112/69
[2017-06-21] MEDS: Ibuprofen 800 MG Tab PO PRN (17:35)
== END 2017-06-21 20:05 | disposition home or self-care (01) | DRG 766 ==
LOC: MW.OBCHECK 05:06 → MW.OB 05:08 → MW.OBCHECK 05:16 → MW.OB 05:16 → OBSVTOIN 16:16 → MW.OB 22:03
PROVIDERS: ADMIT Obstetrics & Gynecology; ATTEND Obstetrics & Gynecology
PROC: 10D00Z1 Extraction of Products of Conception, Low, Open Approach (ICD-10-PCS; principal; 2017-06-19)
DX: O48.0 Post-term pregnancy (principal); O65.8 Obstructed labor due to other maternal pelvic abnormalities; Z3A.41 41 weeks gestation of pregnancy; Z37.0 Single live birth
CPT/HCPCS: 01961; 36415; 59025; 85014; 85018; 85027; 86850; 86900; 86901; A9270-GY; J0690; J1200; J1885; J2270; J2405; J7120

== ENCOUNTER 2020-09-28 15:14 | Emergency (ER) | payer BC ==
[2020-09-28] MEDS ORDERED: Acetaminophen 500 MG Tab PO ONE (16:32)
--- NOTE | 2020-09-28 17:00 | EDM.PDOC ---
ED HPI GENERAL MEDICAL PROBLEM - General Chief Complaint: General Stated Complaint: CHILLS/BODY ACHE Time Seen by Provider: 09/28/20 15:42 Source of Information: Reports: Patient History Limitations: Reports: No Limitations - History of Present Illness INITIAL COMMENTS - FREE TEXT/NARRATIVE: 35-year-old female G2, P1 approximately 25 weeks presents for body aches, headache, chest tightness, shortness of breath over the last 3 days. She has noted subjective fevers. She has been taking Tylenol every 4 hours and notes that she feels much better when she is on the Tylenol but starts to feel poorly again as the Tylenol wears off. She denies any abdominal pain, vaginal bleeding. She has had an ultrasound of this confirming an IUP. body ache Pain Score (Numeric/FACES): 8 - Related Data Allergies Allergy/AdvReac Type Severity Reaction Status Date / Time No Known Allergies Allergy Verified 09/28/20 16:25 Home Meds: Home Meds Pnv No.95/Ferrous Fum/Folic AC [ Caplet] 1 tab PO DAILY 09/28/20 [History] Past Medical History - Past Health History Medical/Surgical History: Denies Medical/Surgical History HEENT History: Reports: None Cardiovascular History: Reports: None Respiratory History: Reports: None Gastrointestinal History: Reports: GERD Genitourinary History: Reports: None PHOTOGRAPH ENLARGER History: Reports: Other PHOTOGRAPH ENLARGER History: Musculoskeletal History: Reports: None Neurological History: Reports: None Psychiatric History: Reports: None Endocrine/Metabolic History: Reports: None Hematologic History: Reports: None Immunologic History: Reports: None Oncologic (Cancer) History: Reports: None Dermatologic History: Reports: None - Infectious Disease History Infectious Disease History: Reports: None - Past Surgical History Head Surgeries/Procedures: Reports: None HEENT Surgical History: Reports: None Cardiovascular Surgical History: Reports: None Respiratory Surgical History: Reports: None GI Surgical History: Reports: None Female Surgical History: Reports: None Endocrine Surgical History: Reports: None Neurological Surgical History: Reports: None Musculoskeletal Surgical History: Reports: None Dermatological Surgical History: Reports: None Social & Family History - Family History Family Medical History: No Pertinent Family History - Caffeine Use Caffeine Use: Reports: None - Recreational Drug Use Recreational Drug Use: No ED ROS GENERAL - Review of Systems Review Of Systems: Comprehensive ROS is negative, except as noted in HPI. ED EXAM, GENERAL - Physical Exam Exam: See Below Exam Limited By: No Limitations General Appearance: Alert, WD/WN, No Apparent Distress Throat/Mouth: Normal Voice, No Airway Compromise Head: Atraumatic, Normocephalic Respiratory/Chest: No Respiratory Distress, No Accessory Muscle Use Cardiovascular: Normal Peripheral Pulses GI/Abdominal: Soft, Non-Tender Extremities: Normal Inspection Neurological: Alert, Normal Gait Psychiatric: Normal Affect, Normal Mood Skin Exam: Warm, Dry, Intact, Normal Color Course - Vital Signs Last Recorded V/S: Last Vital Signs Temp 97.0 F 09/28/20 16:26 Pulse 119 H 09/28/20 16:26 Resp 18 09/28/20 16:26 BP 109/65 09/28/20 16:26 Pulse Ox 99 09/28/20 16:26 - Orders/Labs/Meds Orders: Active Orders 24 hr Category Date Time Status Assess Heart Rate [ Heart Rate] [RC] Click Care 09/28/20 16:57 Active to Edit CORONAVIRUS COVID-19 PCR PHL Stat Lab 09/28/20 16:38 Received Labs: Laboratory Tests 09/28/20 Range/Units 16:38 SARS CoV-2 RNA Rapid KHALIDA NEGATIVE (NEGATIVE) Meds: Medications Discontinued Medications Generic Name Dose Route Start Last Admin Trade Name Marce PRN Reason Stop Dose Admin Acetaminophen 1,000 mg 09/28/20 16:32 09/28/20 16:39 Tylenol Extra Strength PO 09/28/20 16:33 1,000 mg ONETIME ONE Administration - Re-Assessments/Exams Free Text/Narrative Re-Assessment/Exam: 09/28/20 17:00 Patient well-appearing with normal oxygen saturations, mild tachycardia in setting of . Low suspicion for serious pathology such as pulmonary embolism or ACS. Patient symptoms are much more likely due to a viral illness, will check for Covid considering pandemic. Will follow up results and disposition accordingly. Tylenol ordered. heart rates to be assessed by nursing. 09/28/20 17:25 Patient's COVID testing is negative. Will f/u [facility] and recommended f/u with OBGYN for further workup. Departure - Departure Time of Disposition: 17:28 Disposition: Home, Self-Care 01 Condition: Good Clinical Impression: Headache Qualifiers: Headache type: unspecified Headache chronicity pattern: acute headache Intractability: not intractable Qualified Code(s): R51.9 - Headache, unspecified - Discharge Information Referrals: PCP,None [Primary Care Provider] - Forms: ED Department Discharge Additional Instructions: Your COVID-19 testing is negative. Our tests are not always 100% accurate if your state test comes back positive, we will call you to inform you. You should still follow-up with your PHOTOGRAPH ENLARGER to discuss why you have been feeling bad lately, but I have a low suspicion of serious pathology. The following information is given to patients seen in the emergency department who are being discharged to home. This information is to outline your options for follow-up care. We provide all patients seen in our emergency department with a follow-up referral. The need for follow-up, as well as the timing and circumstances, are variable depending upon the specifics of your emergency department visit. If you don't have a primary care physician on staff, we will provide you with a referral. We always advise you to contact your personal physician following an emergency department visit to inform them of the circumstance of the visit and for follow-up with them and/or the need for any referrals to a consulting specialist. The emergency department will also refer you to a specialist when appropriate. This referral assures that you have the opportunity for follow-up care with a specialist. All of these measure are taken in an effort to provide you with optimal care, which includes your follow-up. Under all circumstances we always encourage you to contact your private physician who remains a resource for coordinating your care. When calling for follow-up care, please make the office aware that this follow-up is from your recent emergency room visit. If for any reason you are refused follow-up, please contact the [facility] Emergency Department at and asked to speak to the emergency department charge nurse. Please follow up with your primary care physician. If you do not have a primary care physician, see below: [facility] [address] [place] [id number] [facility] [address] [place] [address] Sepsis Event Note (ED) - Evaluation Sepsis Screening Result: No Definite Risk - Focused Exam Vital Signs: Vital Signs Temp Pulse Resp BP Pulse Ox 09/28/20 16:26 97.0 F 119 H 18 109/65 99 - My Orders Last 24 Hours: My Active Orders 09/28/20 16:38 CORONAVIRUS COVID-19 PCR PHL Stat 09/28/20 16:57 Assess Heart Rate [ Heart Rate] [RC] Click to Edit - Assessment/Plan Last 24 Hours: My Active Orders 09/28/20 16:38 CORONAVIRUS COVID-19 PCR PHL Stat 09/28/20 16:57 Assess Heart Rate [ Heart Rate] [RC] Click to Edit
[2020-09-28 17:43] VITALS: BP 110/53; PULSE 98
== END 2020-09-28 17:43 | disposition home or self-care (01) ==
LOC: MW.ED 15:14
DX: O99.891 Other specified diseases and conditions complicating pregnancy (principal); R51.9 Headache, unspecified; Z20.828 Contact with and (suspected) exposure to other viral communicable diseases; Z3A.25 25 weeks gestation of pregnancy
CPT/HCPCS: 87635; 99284; A9270; 99283; U0002

== ENCOUNTER 2022-09-24 06:19 | Emergency (ER) | payer BC ==
[2022-09-24] MEDS ORDERED: Ibuprofen 600 MG Tab PO ONE (06:40)
[2022-09-24] MEDS ORDERED: Cyclobenzaprine 10 MG Tab PO ONE (06:40)
[2022-09-24] MEDS ORDERED: Sulfamethoxazole/Trimethoprim 800-160 MG Tab PO ONE (06:40)
[2022-09-24] MEDS ORDERED: predniSONE 10 MG Tab PO ONE (06:55)
[2022-09-24 09:22] VITALS: BP 107/71; PULSE 92
== END 2022-09-24 09:23 | disposition home or self-care (01) ==
LOC: MW.ED 06:19
DX: R21 Rash and other nonspecific skin eruption (principal); M54.6 Pain in thoracic spine
CPT/HCPCS: 72040; 72072; 81025; 99283; A9270